=== PATIENT | male | born 1980 | race African-American/Black ===

== ENCOUNTER 2017-10-13 20:03 | Observation (INO) | payer MEDICARE, MEDICAID ==
[~2017-10-13] VITALS: Ht 185.4 cm; Wt 67.5 kg
[~2017-10-13 20:03] MED LIST: BUPR150T73 PO; LEVO750T26 PO; LITH150C PO; QUET25TA5 PO; SLEEP MED
[2017-10-13 21:14] LABS: MEAN CORPUSCULAR HEMOGLOBIN 24.1 pg (27.5-34.5); MEAN CORPUSCULAR HGB CONC 32.2 g/dL (33.2-36.2); MEAN PLATELET VOLUME 9.5 fL (7.4-10.4); PLATELET COUNT 272 x10^3/uL (130-400); RED BLOOD COUNT 5.61 x10^6/uL (4.38-5.82); RED CELL DISTRIBUTION WIDTH 17.7 % (9.4-14.8)
[2017-10-13 21:21] LABS: ALBUMIN 4.3 g/dL (3.4-5.0); ANION GAP 9 mmol/L (5-15); CALCIUM 9.2 mg/dL (8.5-10.1); CHLORIDE 109 mmol/L (98-107)
[2017-10-13 21:25] LABS: ALANINE AMINOTRANSFERASE 18 U/L (12-78); ALKALINE PHOSPHATASE 61 U/L (45-117); BILIRUBIN,TOTAL 0.7 mg/dL (0.2-1.0); CREATININE 0.88 mg/dL (0.7-1.3); SALICYLATE LEVEL 4.5 mg/dL (2.8-20.0); TOTAL PROTEIN 8.3 g/dL (6.4-8.2)
[2017-10-13 21:26] LABS: ACETAMINOPHEN < 2 mcg/mL (10-30)
[2017-10-13 21:33] LABS: AMPHETAMINE SCREEN, URINE Negative (Negative); BARBITURATE SCREEN, URINE Negative (Negative); BENZODIAZEPINE SCREEN, URINE Negative (Negative); CANNABINOID SCREEN, URINE Negative (Negative); COCAINE SCREEN, URINE Negative (Negative); METHADONE SCREEN, URINE Negative (Negative); OPIATE SCREEN, URINE Negative (Negative)
[2017-10-13 21:45] LABS: MD YES
[2017-10-13 21:49] LABS: EOS#(MANUAL) 0.48 x10^3/uL (0.0-0.4); EOS% (MANUAL) 12 % (1-7); LYMPH#(MANUAL) 1.92 x10^3/uL (1-3.4); LYMPHS% (MANUAL) 48 % (22-44); MONOS#(MANUAL) 0.24 x10^3/uL (0.3-2.7); MONOS% (MANUAL) 6 % (2-9); SEG#(MANUAL) 1.36 x10^3/uL (1.8-6.8); SEGS% (MANUAL) 34 % (42-75)
[2017-10-13 21:50] LABS: ANISOCYTOSIS 1+
[2017-10-13 21:51] LABS: <PLATELET ESTIMATE> ADEQUATE; <PLT MORPHOLOGY> NORMAL PLT MORPH
[2017-10-14] MEDS ORDERED: OLANZAPINE 10 MG TABLET PO SCH (03:00)
[2017-10-14] MEDS ORDERED: OLANZAPINE 10 MG TABLET ONE (03:27)
[2017-10-14] MEDS ORDERED: ACETAMINOPHEN 325 MG TABLET PO PRN (04:30)
[2017-10-14] MEDS ORDERED: OLANZAPINE 10 MG INJ IM PRN (05:30)
[2017-10-14] MEDS ORDERED: OLANZAPINE 10 MG TABLET PO PRN (05:30)
[2017-10-14 07:30] VITALS: BP 113/73
[2017-10-14 20:27] VITALS: BP 100/65
[2017-10-14] MEDS: OLANZAPINE 10 MG TABLET PO SCH ×2 (21:34→21:36)
[2017-10-15 08:00] VITALS: BP 123/83
[2017-10-15] MEDS ORDERED: OLAN10TA9 PO (14:17)
== END 2017-10-15 14:40 | disposition home or self-care (01) ==
LOC: ED 21:42 → SUATTDRO 10-14 04:22 → EDIP 10-14 04:40 → 3E 10-14 05:36
PROVIDERS: ADMIT Hospitalist; ATTEND Hospitalist
DX: F20.9 Schizophrenia, unspecified (principal); F23 Brief psychotic disorder; D50.9 Iron deficiency anemia, unspecified; D63.8 Anemia in other chronic diseases classified elsewhere; I10 Essential (primary) hypertension
CPT/HCPCS: 36415; 80053; 80307; 80329; 82728; 83540; 83550; 85025; 99285; G0378; G0480

== ENCOUNTER 2017-10-20 21:50 | Observation (INO) | payer MEDICARE, MEDICAID ==
[~2017-10-20] VITALS: Ht 182.9 cm; Wt 70.2 kg
[~2017-10-20 21:50] MED LIST changes: +OLAN10TA9 PO
[2017-10-20] MEDS ORDERED: LORazepam 1MG TABLET PO ONE (23:00)
[2017-10-20 23:35] LABS: MEAN CORPUSCULAR HEMOGLOBIN 24.1 pg (27.5-34.5); MEAN CORPUSCULAR HGB CONC 32.2 g/dL (33.2-36.2); MEAN CORPUSCULAR VOLUME 74.7 fL (81-97); MEAN PLATELET VOLUME 9.1 fL (7.4-10.4); PLATELET COUNT 250 x10^3/uL (130-400); RED BLOOD COUNT 5.09 x10^6/uL (4.38-5.82); RED CELL DISTRIBUTION WIDTH 17.6 % (9.4-14.8)
[2017-10-20 23:46] LABS: ALBUMIN 3.8 g/dL (3.4-5.0); ANION GAP 6 mmol/L (5-15); CALCIUM 8.9 mg/dL (8.5-10.1); CHLORIDE 106 mmol/L (98-107); CREATININE 0.85 mg/dL (0.7-1.3); SALICYLATE LEVEL 2.9 mg/dL (2.8-20.0)
[2017-10-20 23:49] LABS: ACETAMINOPHEN < 2 mcg/mL (10-30)
[2017-10-21 00:11] LABS: BASOPHILS # (AUTO) 0.04 x10^3/uL (0-0.1); BASOPHILS % (AUTO) 1 % (0-1); EOSINOPHILS % (AUTO) 7 % (1-7); LYMPHOCYTES # (AUTO) 1.78 x10^3/uL (1-3.4); LYMPHOCYTES % (AUTO) 41 % (22-44); MD SCAN; MONOCYTES # (AUTO) 0.47 x10^3/uL (0.2-0.8); MONOCYTES % (AUTO) 11 % (2-9); NEUTROPHILS # (AUTO) 1.77 x10^3/uL (1.8-6.8); NEUTROPHILS % (AUTO) 41 % (42-75)
[2017-10-21 00:59] LABS: AMPHETAMINE SCREEN, URINE Negative (Negative); BARBITURATE SCREEN, URINE Negative (Negative); BENZODIAZEPINE SCREEN, URINE Negative (Negative); CANNABINOID SCREEN, URINE Negative (Negative); COCAINE SCREEN, URINE Negative (Negative); METHADONE SCREEN, URINE Negative (Negative); OPIATE SCREEN, URINE Negative (Negative)
[2017-10-21] MEDS ORDERED: LORazepam 1MG TABLET ONE (02:50)
[2017-10-21] MEDS ORDERED: DOCUSATE 100 MG CAPSULE PO PRN (06:30)
[2017-10-21] MEDS ORDERED: ONDANSETRON ODT 4 MG PO PRN (06:30)
[2017-10-21] MEDS: OLANZAPINE 10 MG TABLET PO SCH ×2 (06:30→21:51)
[2017-10-21] MEDS ORDERED: OLANZAPINE 10 MG TABLET ONE (21:39)
[2017-10-22 11:24] VITALS: BP 110/69
[2017-10-22 19:50] VITALS: BP 118/69
[2017-10-22] MEDS: OLANZAPINE 10 MG TABLET PO SCH (21:48)
[2017-10-23 08:08] VITALS: BP 123/72
== END 2017-10-23 12:45 ==
LOC: ED 23:59 → EDIP 10-21 05:59 → 3NE 10-21 17:32 → 3E 10-22 11:37
PROVIDERS: ADMIT Internal Medicine; ATTEND Internal Medicine
DX: F20.0 Paranoid schizophrenia (principal); D50.9 Iron deficiency anemia, unspecified; I10 Essential (primary) hypertension; Z91.14 Patient's other noncompliance with medication regimen
CPT/HCPCS: 36415; 80048; 80307; 80329; 82040; 85025; 99284; 99285; G0378; G0480

== ENCOUNTER 2017-10-28 18:14 | Emergency (ER) | payer MEDICARE, MEDICAID ==
[~2017-10-28] VITALS: Ht 182.9 cm; Wt 71.4 kg
[2017-10-28 18:39] VITALS: BP 137/96
[2017-10-28] MEDS ORDERED: FLUORESCEIN OPHTHALMIC 1 MG STRIP ONE (19:15)
[2017-10-28] MEDS ORDERED: PROPARACAINE OPHTH 0.5%, 15ML ONE (19:15)
[2017-10-28] MEDS ORDERED: PROPARACAINE OPHTH 0.5%, 15ML EACHEYE ONE (19:30)
[2017-10-28] MEDS ORDERED: FLUORESCEIN OPHTHALMIC 1 MG STRIP EACHEYE ONE (19:30)
== END 2017-10-28 20:00 | disposition home or self-care (01) ==
LOC: ED 19:30
DX: L01.01 Non-bullous impetigo (principal); F32.9 Major depressive disorder, single episode, unspecified; F20.9 Schizophrenia, unspecified; E87.6 Hypokalemia; I10 Essential (primary) hypertension
CPT/HCPCS: 99283

== ENCOUNTER 2017-10-31 19:03 | Emergency (ER) | payer MEDICARE, MEDICAID ==
[~2017-10-31] VITALS: Ht 182.9 cm; Wt 68.4 kg
[2017-10-31 19:08] VITALS: BP 144/100
== END 2017-10-31 20:35 | disposition left against medical advice (07) ==
LOC: ED 19:20
DX: F20.0 Paranoid schizophrenia (principal)
CPT/HCPCS: 99281

== ENCOUNTER 2017-11-01 07:51 | Inpatient (IN) | payer MEDICARE, MEDICAID ==
[~2017-11-01] VITALS: Ht 182.9 cm; Wt 57.5 kg
[2017-11-01 08:48] LABS: AMPHETAMINE SCREEN, URINE Negative (Negative); BARBITURATE SCREEN, URINE Negative (Negative); BENZODIAZEPINE SCREEN, URINE Negative (Negative); CANNABINOID SCREEN, URINE Negative (Negative); COCAINE SCREEN, URINE Negative (Negative); METHADONE SCREEN, URINE Negative (Negative); OPIATE SCREEN, URINE Negative (Negative)
[2017-11-01 08:57] LABS: ALBUMIN 4.5 g/dL (3.4-5.0); ANION GAP 8 mmol/L (5-15); CALCIUM 9.1 mg/dL (8.5-10.1); CHLORIDE 105 mmol/L (98-107); CREATININE 1.01 mg/dL (0.7-1.3); SALICYLATE LEVEL 2.5 mg/dL (2.8-20.0)
[2017-11-01 08:58] LABS: ACETAMINOPHEN < 2 mcg/mL (10-30)
[2017-11-01 09:01] LABS: MEAN CORPUSCULAR HEMOGLOBIN 24.3 pg (27.5-34.5); MEAN CORPUSCULAR HGB CONC 32.8 g/dL (33.2-36.2); MEAN CORPUSCULAR VOLUME 74.3 fL (81-97); MEAN PLATELET VOLUME 9.6 fL (7.4-10.4); PLATELET COUNT 264 x10^3/uL (130-400); RED BLOOD COUNT 5.74 x10^6/uL (4.38-5.82); RED CELL DISTRIBUTION WIDTH 17.6 % (9.4-14.8)
[2017-11-01 09:02] LABS: MD YES
[2017-11-01 09:27] LABS: ANISOCYTOSIS 1+; EOS#(MANUAL) 0.08 x10^3/uL (0.0-0.4); EOS% (MANUAL) 1 % (1-7); LYMPH#(MANUAL) 1.98 x10^3/uL (1-3.4); LYMPHS% (MANUAL) 25 % (22-44); MONOS#(MANUAL) 0.71 x10^3/uL (0.3-2.7); MONOS% (MANUAL) 9 % (2-9); SEG#(MANUAL) 5.14 x10^3/uL (1.8-6.8); SEGS% (MANUAL) 65 % (42-75)
[2017-11-01 09:28] LABS: <PLATELET ESTIMATE> ADEQUATE; <PLT MORPHOLOGY> NORMAL PLT MORPH
[2017-11-01] MEDS ORDERED: ONDANSETRON ODT 4 MG PO PRN (13:00)
[2017-11-01] MEDS ORDERED: HALOPERIDOL 1 MG TABLET PO PRN (13:00)
[2017-11-01] MEDS ORDERED: OLANZAPINE 10 MG TABLET ONE (22:20)
[2017-11-01] MEDS ORDERED: ZOLPIDEM 5MG TABLET ONE (22:20)
[2017-11-01] MEDS: ZOLPIDEM 5MG TABLET PO PRN (22:23)
[2017-11-01] MEDS: OLANZAPINE 10 MG TABLET PO SCH (22:23)
[2017-11-01 22:50] VITALS: BP 133/89
[2017-11-02 08:30] VITALS: BP 110/74
[2017-11-02 19:46] VITALS: BP 102/68
[2017-11-02] MEDS: ZOLPIDEM 5MG TABLET PO PRN (20:39)
[2017-11-02] MEDS: OLANZAPINE 10 MG TABLET PO SCH (20:39)
[2017-11-03 07:55] VITALS: BP 120/67
[2017-11-03 20:10] VITALS: BP 115/80
[2017-11-03] MEDS: ZOLPIDEM 5MG TABLET PO PRN (21:00)
[2017-11-03] MEDS: OLANZAPINE 10 MG TABLET PO SCH (21:00)
[2017-11-04] MEDS: ZOLPIDEM 5MG TABLET PO PRN (22:38)
[2017-11-04] MEDS: OLANZAPINE 10 MG TABLET PO SCH (22:38)
[2017-11-05 08:38] VITALS: BP 120/79
[2017-11-05 19:34] VITALS: BP 123/85
[2017-11-05] MEDS: ZOLPIDEM 5MG TABLET PO PRN (20:54)
[2017-11-05] MEDS: OLANZAPINE 10 MG TABLET PO SCH (20:55)
[2017-11-06 08:48] VITALS: BP 97/55
== END 2017-11-06 13:45 | disposition home or self-care (01) | DRG 885 ==
LOC: ED 08:23 → EDIP 11:55 → OBSVTOIN 12:57 → 3E 22:41
PROVIDERS: ADMIT Internal Medicine; ATTEND Internal Medicine
DX: F20.0 Paranoid schizophrenia (principal); Z91.14 Patient's other noncompliance with medication regimen; I10 Essential (primary) hypertension; Z88.8 Allergy status to other drugs, medicaments and biological substances
CPT/HCPCS: 36415; 80048; 80307; 80329; 82040; 85025; G0378; G0480

== ENCOUNTER 2017-11-08 20:40 | Emergency (ER) | payer MEDICARE, MEDICAID ==
[~2017-11-08] VITALS: Ht 185.4 cm; Wt 73.7 kg
[2017-11-08 20:45] VITALS: BP 138/100
== END 2017-11-08 23:39 | disposition home or self-care (01) ==
LOC: ED 23:33
DX: F20.0 Paranoid schizophrenia (principal); I10 Essential (primary) hypertension; F32.9 Major depressive disorder, single episode, unspecified; Z87.891 Personal history of nicotine dependence
CPT/HCPCS: 99284

== ENCOUNTER 2017-11-12 20:33 | Emergency (ER) | payer SELFPAY | END 2017-11-12 21:02 | disposition left against medical advice (07) | LOC: MERGE 20:33 → ED 20:56 | DX: Z53.21 Procedure and treatment not carried out due to patient leaving prior to being seen by health care provider (principal) ==

== ENCOUNTER 2017-11-12 20:38 | Emergency (ER) | payer MEDICARE, MEDICAID ==
[~2017-11-12] VITALS: Ht 180.3 cm; Wt 69.4 kg
[2017-11-12 21:23] LABS: AMPHETAMINE SCREEN, URINE Negative (Negative); BARBITURATE SCREEN, URINE Negative (Negative); BENZODIAZEPINE SCREEN, URINE Negative (Negative); CANNABINOID SCREEN, URINE Negative (Negative); COCAINE SCREEN, URINE Negative (Negative); METHADONE SCREEN, URINE Negative (Negative); OPIATE SCREEN, URINE Negative (Negative)
[2017-11-12 22:06] VITALS: BP 128/65
== END 2017-11-12 22:09 | disposition home or self-care (01) ==
LOC: ED 21:53
DX: F20.0 Paranoid schizophrenia (principal); I10 Essential (primary) hypertension; Z91.19 Patient's noncompliance with other medical treatment and regimen
CPT/HCPCS: 80307; 99284

== ENCOUNTER 2017-11-15 21:42 | Emergency (ER) | payer MEDICARE, MEDICAID ==
[~2017-11-15] VITALS: Ht 182.9 cm; Wt 74.9 kg
[2017-11-15 21:44] VITALS: BP 146/94
== END 2017-11-15 21:56 | disposition left against medical advice (07) ==
LOC: ED 21:50
DX: R45.1 Restlessness and agitation (principal); Z53.21 Procedure and treatment not carried out due to patient leaving prior to being seen by health care provider

== ENCOUNTER 2017-11-17 23:56 | Emergency (ER) | payer MEDICARE, MEDICAID ==
[2017-11-18] VITALS: BP 129/84
== END 2017-11-18 00:24 | disposition left against medical advice (07) ==
LOC: ED 23:59
DX: Z53.21 Procedure and treatment not carried out due to patient leaving prior to being seen by health care provider (principal)

== ENCOUNTER 2017-12-12 00:25 | Emergency (ER) | payer MEDICARE, MEDICAID ==
[2017-12-12 00:27] VITALS: BP 133/89
== END 2017-12-12 01:42 | disposition home or self-care (01) ==
LOC: ED 01:33
DX: F20.9 Schizophrenia, unspecified (principal); Z76.0 Encounter for issue of repeat prescription; Z72.9 Problem related to lifestyle, unspecified
CPT/HCPCS: 99283

== ENCOUNTER 2017-12-15 23:00 | Emergency (ER) | payer MEDICARE, MEDICAID ==
[2017-12-15 23:01] VITALS: BP 151/114
== END 2017-12-16 00:23 | disposition home or self-care (01) ==
LOC: ED 23:27
DX: F20.0 Paranoid schizophrenia (principal); I10 Essential (primary) hypertension; Z72.9 Problem related to lifestyle, unspecified
CPT/HCPCS: 99284

== ENCOUNTER 2017-12-16 04:25 | Emergency (ER) | payer MEDICARE, MEDICAID ==
[~2017-12-16] VITALS: Ht 182.9 cm; Wt 70.7 kg
[2017-12-16 04:26] VITALS: BP 145/90
[2017-12-16] MEDS ORDERED: QUETIAPINE 100MG TABLET ONE (05:09)
[2017-12-16] MEDS ORDERED: QUETIAPINE 200 MG TABLET PO ONE (05:30)
== END 2017-12-16 05:23 | disposition home or self-care (01) ==
LOC: ED 05:18
DX: F20.0 Paranoid schizophrenia (principal); Z72.9 Problem related to lifestyle, unspecified; I10 Essential (primary) hypertension; F32.9 Major depressive disorder, single episode, unspecified; F17.200 Nicotine dependence, unspecified, uncomplicated
CPT/HCPCS: 99284

== ENCOUNTER 2018-01-10 17:26 | Emergency (ER) | payer MEDICARE, MEDICAID ==
[~2018-01-10] VITALS: Ht 182.9 cm; Wt 70.9 kg
[2018-01-10] MEDS ORDERED: LORazepam 1MG TABLET ONE (18:30)
[2018-01-10] MEDS ORDERED: LORazepam 1MG TABLET PO ONE (18:30)
[2018-01-10 18:57] LABS: AMPHETAMINE SCREEN, URINE Positive (Negative); BARBITURATE SCREEN, URINE Negative (Negative); BENZODIAZEPINE SCREEN, URINE Negative (Negative); CANNABINOID SCREEN, URINE Negative (Negative); COCAINE SCREEN, URINE Negative (Negative); METHADONE SCREEN, URINE Negative (Negative); OPIATE SCREEN, URINE Negative (Negative)
[2018-01-10 19:03] LABS: ALBUMIN 4.4 g/dL (3.4-5.0); ANION GAP 11 mmol/L (5-15); CALCIUM 9.6 mg/dL (8.5-10.1); CHLORIDE 104 mmol/L (98-107); CREATININE 0.94 mg/dL (0.7-1.3); SALICYLATE LEVEL 1.9 mg/dL (2.8-20.0)
[2018-01-10 19:17] LABS: ACETAMINOPHEN < 2 mcg/mL (10-30)
[2018-01-10 19:20] LABS: MEAN CORPUSCULAR HGB CONC 32.7 g/dL (33.2-36.2); MEAN CORPUSCULAR VOLUME 76.4 fL (81-97); MEAN PLATELET VOLUME 9.4 fL (7.4-10.4); PLATELET COUNT 286 x10^3/uL (130-400); RED BLOOD COUNT 5.44 x10^6/uL (4.38-5.82); RED CELL DISTRIBUTION WIDTH 16.2 % (9.4-14.8)
[2018-01-10 19:49] LABS: MD YES
[2018-01-10 19:53] LABS: ANISOCYTOSIS 1+; EOS% (MANUAL) 1 % (1-7); LYMPH#(MANUAL) 1.58 x10^3/uL (1-3.4); LYMPHS% (MANUAL) 16 % (22-44); MONOS#(MANUAL) 0.99 x10^3/uL (0.3-2.7); MONOS% (MANUAL) 10 % (2-9); SEG#(MANUAL) 7.23 x10^3/uL (1.8-6.8); SEGS% (MANUAL) 73 % (42-75)
[2018-01-10 19:54] LABS: <PLATELET ESTIMATE> ADEQUATE; <PLT MORPHOLOGY> NORMAL PLT MORPH
[2018-01-10 22:57] VITALS: BP 138/82
== END 2018-01-10 22:59 | disposition home or self-care (01) ==
LOC: ED 18:53
DX: Z76.5 Malingerer [conscious simulation] (principal); I10 Essential (primary) hypertension; F20.9 Schizophrenia, unspecified; F32.9 Major depressive disorder, single episode, unspecified; F41.1 Generalized anxiety disorder
CPT/HCPCS: 36415; 80048; 80307; 80329; 82040; 85025; 99284; G0480

== ENCOUNTER 2018-01-11 19:48 | Emergency (ER) | payer MEDICARE, MEDICAID ==
[~2018-01-11] VITALS: Ht 182.9 cm; Wt 70.0 kg
[2018-01-11 19:55] VITALS: BP 140/108
== END 2018-01-11 20:23 | disposition left against medical advice (07) ==
LOC: ED 20:17
DX: Z53.21 Procedure and treatment not carried out due to patient leaving prior to being seen by health care provider (principal)

== ENCOUNTER 2018-03-28 00:30 | Emergency (ER) | payer MEDICAID, MEDICARE ==
[~2018-03-28] VITALS: Ht 182.9 cm; Wt 72.6 kg
[2018-03-28 00:32] VITALS: BP 145/91
== END 2018-03-28 04:09 | disposition home or self-care (01) ==
LOC: ED 04:04
DX: F22 Delusional disorders (principal); I10 Essential (primary) hypertension; F17.200 Nicotine dependence, unspecified, uncomplicated
CPT/HCPCS: 99284

== ENCOUNTER 2018-05-18 22:39 | Emergency (ER) | payer MEDICARE, MEDICAID ==
[~2018-05-18] VITALS: Ht 182.9 cm; Wt 72.5 kg
[2018-05-18 22:40] VITALS: BP 134/87
== END 2018-05-18 23:43 | disposition home or self-care (01) ==
LOC: ED 23:18
DX: F20.0 Paranoid schizophrenia (principal); Z76.0 Encounter for issue of repeat prescription; I10 Essential (primary) hypertension; F41.1 Generalized anxiety disorder; F32.9 Major depressive disorder, single episode, unspecified
CPT/HCPCS: 99283

== ENCOUNTER 2018-05-22 12:39 | Emergency (ER) | payer MEDICARE, MEDICAID ==
[~2018-05-22] VITALS: Ht 182.9 cm; Wt 71.2 kg
[2018-05-22 13:31] LABS: ALBUMIN 3.8 g/dL (3.4-5.0); ANION GAP 6 mmol/L (5-15); CALCIUM 8.9 mg/dL (8.5-10.1); CHLORIDE 105 mmol/L (98-107)
[2018-05-22 13:37] LABS: ALANINE AMINOTRANSFERASE 27 U/L (12-78); ALKALINE PHOSPHATASE 65 U/L (45-117); BILIRUBIN,TOTAL 0.4 mg/dL (0.2-1.0); CREATININE 0.77 mg/dL (0.7-1.3); TOTAL PROTEIN 7.8 g/dL (6.4-8.2)
[2018-05-22 13:38] LABS: SALICYLATE LEVEL < 1.7 mg/dL (2.8-20.0)
[2018-05-22 13:39] LABS: ACETAMINOPHEN < 2 mcg/mL (10-30)
[2018-05-22 13:44] LABS: MEAN CORPUSCULAR HGB CONC 32.3 g/dL (33.2-36.2); MEAN CORPUSCULAR VOLUME 77.4 fL (81-97); MEAN PLATELET VOLUME 9.5 fL (7.4-10.4); PLATELET COUNT 378 x10^3/uL (130-400); RED BLOOD COUNT 5.09 x10^6/uL (4.38-5.82); RED CELL DISTRIBUTION WIDTH 17.5 % (9.4-14.8)
[2018-05-22 13:48] LABS: AMPHETAMINE SCREEN, URINE Negative (Negative); BARBITURATE SCREEN, URINE Negative (Negative); BENZODIAZEPINE SCREEN, URINE Negative (Negative); CANNABINOID SCREEN, URINE Negative (Negative); COCAINE SCREEN, URINE Negative (Negative); METHADONE SCREEN, URINE Negative (Negative); OPIATE SCREEN, URINE Negative (Negative)
[2018-05-22 14:13] LABS: MD YES
[2018-05-22 14:19] LABS: ANISOCYTOSIS 1+; BASOS#(MANUAL) 0.04 x10^3/uL (0-0.1); BASOS% (MANUAL) 1 % (0-1); EOS#(MANUAL) 0.11 x10^3/uL (0.0-0.4); EOS% (MANUAL) 3 % (1-7); LYMPHS% (MANUAL) 42 % (22-44); MONOS#(MANUAL) 0.34 x10^3/uL (0.3-2.7); MONOS% (MANUAL) 9 % (2-9); SEG#(MANUAL) 1.71 x10^3/uL (1.8-6.8); SEGS% (MANUAL) 45 % (42-75)
[2018-05-22 14:21] LABS: <PLATELET ESTIMATE> ADEQUATE; <PLT MORPHOLOGY> NORMAL PLT MORPH; HYPOCHROMIA 1+; MICROCYTOSIS 1+
[2018-05-22 15:29] VITALS: BP 118/69
== END 2018-05-22 17:23 | disposition home or self-care (01) ==
LOC: ED 13:17
DX: F20.0 Paranoid schizophrenia (principal); I10 Essential (primary) hypertension; F17.200 Nicotine dependence, unspecified, uncomplicated
CPT/HCPCS: 36415; 80053; 80307; 80329; 85025; 99284; G0480

== ENCOUNTER 2018-05-23 03:40 | Emergency (ER) | payer MEDICARE, MEDICAID ==
[~2018-05-23] VITALS: Ht 182.9 cm; Wt 70.2 kg
[2018-05-23 03:44] VITALS: BP 135/77
== END 2018-05-23 07:15 | disposition home or self-care (01) ==
LOC: ED 05:45
DX: F20.0 Paranoid schizophrenia (principal); F41.1 Generalized anxiety disorder
CPT/HCPCS: 99284

== ENCOUNTER 2018-06-05 23:01 | Emergency (ER) | payer MEDICARE, MEDICAID ==
[~2018-06-05] VITALS: Ht 182.9 cm; Wt 71.6 kg
[2018-06-05 23:05] VITALS: BP 149/85
== END 2018-06-06 00:42 | disposition home or self-care (01) ==
LOC: ED 23:49
DX: F20.0 Paranoid schizophrenia (principal); Z72.9 Problem related to lifestyle, unspecified; F41.1 Generalized anxiety disorder; F32.9 Major depressive disorder, single episode, unspecified; I10 Essential (primary) hypertension; Z88.8 Allergy status to other drugs, medicaments and biological substances
CPT/HCPCS: 99284

== ENCOUNTER 2018-06-15 20:15 | Emergency (ER) | payer MEDICARE, MEDICAID ==
[~2018-06-15] VITALS: Ht 185.4 cm; Wt 80.0 kg
[2018-06-15 20:17] VITALS: BP 156/104
--- NOTE | 2018-06-15 20:37 | NUR ---
PT STATING HE WOULD LIKE TO BE IN A MENTAL INSTITUTION BECAUSE "I HAVE BEEN HAVING SCHIZOPHRENIA THOUGHTS" PT DENIES SI/HI AND "WOULD LIKE TO BE SEEN AND TAKEN CARE OF DAMN IT". MD AT BEDSIDE FOR ASSESSMENT. NO OTHER MEDICAL COMPLAINTS FROM PT AT THIS TIME. REFUSING TO PROVIDE UA. STATES "YOU DONT NEED MY PISS, JUST DO I ASK." REFUSING TO WEAR VITALS EQUIPMENT.
--- NOTE | 2018-06-15 20:46 | NUR ---
PT TBDC PER MD ORDER.
[2018-06-15 21:11] LABS: ALBUMIN 4.3 g/dL (3.4-5.0); ANION GAP 9 mmol/L (5-15); CALCIUM 9.3 mg/dL (8.5-10.1); CHLORIDE 106 mmol/L (98-107); CREATININE 0.89 mg/dL (0.7-1.3); SALICYLATE LEVEL 3.1 mg/dL (2.8-20.0)
[2018-06-15 21:20] LABS: MD YES; MEAN CORPUSCULAR HEMOGLOBIN 25.1 pg (27.5-34.5); MEAN CORPUSCULAR HGB CONC 32.5 g/dL (33.2-36.2); MEAN CORPUSCULAR VOLUME 77.3 fL (81-97); MEAN PLATELET VOLUME 9.7 fL (7.4-10.4); PLATELET COUNT 232 x10^3/uL (130-400); RED BLOOD COUNT 5.76 x10^6/uL (4.38-5.82); RED CELL DISTRIBUTION WIDTH 17.1 % (9.4-14.8)
[2018-06-15 21:21] LABS: ACETAMINOPHEN < 2 mcg/mL (10-30)
[2018-06-15 21:22] LABS: LYMPH#(MANUAL) 2.13 x10^3/uL (1-3.4); LYMPHS% (MANUAL) 38 % (22-44); MONOS#(MANUAL) 0.67 x10^3/uL (0.3-2.7); MONOS% (MANUAL) 12 % (2-9); SEGS% (MANUAL) 50 % (42-75)
[2018-06-15 21:23] LABS: <PLATELET ESTIMATE> ADEQUATE; <PLT MORPHOLOGY> NORMAL PLT MORPH; ANISOCYTOSIS 1+
== END 2018-06-15 21:09 | disposition home or self-care (01) ==
LOC: ED 21:00
DX: F20.0 Paranoid schizophrenia (principal); I10 Essential (primary) hypertension; F41.1 Generalized anxiety disorder; F32.9 Major depressive disorder, single episode, unspecified
CPT/HCPCS: 36415; 80048; 80307; 80329; 82040; 85025; 99284; G0480

== ENCOUNTER 2018-08-21 21:47 | Emergency (ER) | payer MEDICAID, MEDICARE ==
[~2018-08-21] VITALS: Ht 182.9 cm; Wt 68.4 kg
[2018-08-21 23:28] VITALS: BP 127/87
--- NOTE | 2018-08-22 00:10 | NUR ---
NO ANSWER WHEN CALLED FOR ROOM.
--- NOTE | 2018-08-22 00:45 | NUR ---
AMBULATE TO ROOM WITH STEADY GAIT, HAS HEADPHONES IN.
--- NOTE | 2018-08-22 00:53 | NUR ---
PT SITTING UP IN [facility] NOTED. ERP AT BEDSIDE FOR INITIAL ASSESSMENT
--- NOTE | 2018-08-22 01:02 | NUR ---
PT CONTINUES TO DENY SI/HI AND STATES THAT HE WOULD LIKE TO GET BACK TO THE [facility] HAS A BED THERE UNTIL 0200 AM. CAB VOUCHER PROVIDED, PT IS MOST PLEASANT AND COOPERATIVE THIS EVEING
== END 2018-08-22 01:06 | disposition home or self-care (01) ==
LOC: ED 08-22 00:55
DX: F28 Other psychotic disorder not due to a substance or known physiological condition (principal); F17.210 Nicotine dependence, cigarettes, uncomplicated; I10 Essential (primary) hypertension; F20.9 Schizophrenia, unspecified
CPT/HCPCS: 99284

== ENCOUNTER 2019-05-23 10:26 | Emergency (ER) | payer MEDICARE, MEDICAID ==
[~2019-05-23] VITALS: Ht 180.3 cm; Wt 69.7 kg
[2019-05-23 10:31] VITALS: BP 125/72
== END 2019-05-23 12:25 | disposition home or self-care (01) ==
LOC: ED 11:55
DX: M79.644 Pain in right finger(s) (principal)
CPT/HCPCS: 29130; 99283

== ENCOUNTER 2020-03-28 10:50 | Emergency (ER) | payer MEDICARE, MEDICAID ==
[~2020-03-28] VITALS: Ht 182.9 cm; Wt 70.0 kg
--- NOTE | 2020-03-28 11:05 | NUR ---
PT BIB EMS FOR "HEARING VOICES". PT WAS AT THE BUS STOP AND HE CALLED 911 BECAUSE HE "THINKS SOMEONE IS AFTER HIM. SOMEONE IS ALWAYS AFTER ME. THATS WHY I TAKE SEROQUL...SO I CAN BE SEDATED". PT TRIED TO CHECK INTO A MENTAL HEALTH FACILITY AND WAS TOLD TO COME TO ER. PT HAS DENIED SI/HI AT THIS TIME. PT IS RESTING IN [facility]. PT IS NOT ON A LEGAL HOLD AT THIS TIME
[2020-03-28 12:03] LABS: CHLORIDE 109 mmol/L (98-107)
[2020-03-28 12:06] LABS: ALBUMIN 4.2 g/dL (3.4-5.0); ANION GAP 5 mmol/L (5-15); CREATININE 0.92 mg/dL (0.7-1.3); SALICYLATE LEVEL 2.3 mg/dL (2.8-20.0)
[2020-03-28 12:09] LABS: RED CELL DISTRIBUTION WIDTH 15.7 % (9.4-14.8)
--- NOTE | 2020-03-28 12:16 | NUR ---
FIRST CONTACT WITH PT, PSYCH HERE INTERVIEWING PLACED PT ON LEGAL HOLD. CN NOTIFIED. URINE WALKED TO LAB BY THIS GEOLOGICAL SAMPLE TESTER.
[2020-03-28 12:20] LABS: BASOPHILS % (AUTO) 1 % (0-1); EOSINOPHILS % (AUTO) 1 % (1-7); LYMPHOCYTES % (AUTO) 32 % (22-44); MEAN PLATELET VOLUME 8.8 fL (7.4-10.4); MONOCYTES % (AUTO) 13 % (2-9); NEUTROPHILS % (AUTO) 54 % (42-75); PLATELET COUNT 254 x10^3/uL (130-400); RED BLOOD COUNT 6.36 x10^6/uL (4.38-5.82)
[2020-03-28 12:21] LABS: MD NO
--- NOTE | 2020-03-28 12:21 | NUR ---
CN NOTIFIED OF HOLD STATUS, ROOM SECURED, BELONGINGS REMOVED PLACED IN STORAGE LOCKER. PT IS CALM, COOPERATIVE AT THIS TIME. WILL CONTINUE TO MONITOR.
[2020-03-28 13:21] VITALS: BP 145/88
--- NOTE | 2020-03-28 13:21 | NUR ---
REPORT TO JOSH IN [facility]. PT TO BE TX WITH ALL BELONGINS ACCOMPANY BY TECH.
[2020-03-28 13:35] LABS: AMPHETAMINE SCREEN, URINE Negative (Negative); BARBITURATE SCREEN, URINE Negative (Negative); BENZODIAZEPINE SCREEN, URINE Negative (Negative); CANNABINOID SCREEN, URINE Negative (Negative); COCAINE SCREEN, URINE Negative (Negative); OPIATE SCREEN, URINE Negative (Negative)
[2020-03-28 13:41] LABS: METHADONE SCREEN, URINE Negative (Negative)
== END 2020-03-28 14:29 | disposition other institution (70) ==
LOC: ED 13:28
DX: R44.1 Visual hallucinations (principal); F20.9 Schizophrenia, unspecified; I10 Essential (primary) hypertension; F32.9 Major depressive disorder, single episode, unspecified
CPT/HCPCS: 36415; 80048; 80307; 82040; 85025; 99283

== ENCOUNTER 2020-04-10 01:33 | Emergency (ER) | payer MEDICARE, MEDICAID ==
[~2020-04-10] VITALS: Ht 182.9 cm; Wt 65.8 kg
[~2020-04-10 01:33] MED LIST changes: +NICO-485 TD; +QUET100T PO
--- NOTE | 2020-04-10 01:53 | NUR ---
PT STATES HIS LANDLORD IS TRYING TO HARM HIM, DENIES SI/HI. WHEN ASKING PT QUESTIONS ABOUT SMOKING, DRINKING HISTORY PT GETS FLUSTED AND STATES "I DONT KNOW, I CANNOT DIAGNOSE MYSELF, AND YOU GUYS CANNOT DIAGNOSE ME EITHER". PT RESTLESS IN BED, PLACED ON CONTINUOUS PULSE OX.
--- NOTE | 2020-04-10 02:03 | NUR ---
ERP AT BEDSIDE FOR EVAL
[2020-04-10] MEDS ORDERED: QUETIAPINE 100MG TABLET ONE (02:19)
--- NOTE | 2020-04-10 02:24 | NUR ---
PT MEDICATED PER EMAR, AND GIVEN SOME CEREAL, OK PER MD
[2020-04-10] MEDS ORDERED: QUETIAPINE 200 MG TABLET PO ONE (02:30)
--- NOTE | 2020-04-10 02:58 | NUR ---
PT STATES FEELING BETTER AFTER SEROQUIL ADMIN, PT DROWSY AND DOZING INTERMITTENTLY AT THIS TIME
--- NOTE | 2020-04-10 03:53 | NUR ---
PT SLEEPING IN BED, SLURRING SPEECH SLIGHTLY FROM MEDICATION AND DOZING OFF AND ON WHILE THIS NURSE IS TALKING WITH PT. SPOKE WITH ERP, PT WAS EXPRESSING PARANOIA/FEAR TOWARDS GOING HOME TO [facility] AND WAS OFF MEDS FOR "AWHILE"- PER PT. PT MEDICATED PER EMAR, AND ERP STATES TO HAVE PT MTF.
[2020-04-10 04:29] VITALS: BP 112/66
--- NOTE | 2020-04-10 04:39 | NUR ---
ERP GAVE THIS RN D/C PAPERS, BUT STATED TO WAIT UNTIL 529 BECAUSE PT'S LANDLORD LEAVES FOR WORK AT THAT TIME AND PT IS SCARED OF GETTING HURT IF HE GOES HOME EARLIER. PT RESTING IN BED, RESP EVEN, AND ON PULSE CONTINUOUS OX.
== END 2020-04-10 06:10 | disposition home or self-care (01) ==
LOC: ED 03:40
DX: F20.0 Paranoid schizophrenia (principal); Z76.0 Encounter for issue of repeat prescription; F41.1 Generalized anxiety disorder
CPT/HCPCS: 99281; 99283

== ENCOUNTER 2020-05-05 21:00 | Emergency (ER) | payer MEDICARE, MEDICAID ==
[~2020-05-05] VITALS: Ht 182.9 cm; Wt 69.0 kg
[2020-05-05 21:19] VITALS: BP 147/87
--- NOTE | 2020-05-05 23:39 | NUR ---
MARINE UNDERWRITER: PT FROM LOBBY TO ROOM AT THIS TIME. STEADY UPON AMBULATION.
--- NOTE | 2020-05-05 23:43 | NUR ---
pt reports that he feels like his roommates and landlords "want to put him to rest". felt like this for about a year. no SI/HI. pt states he has been on medications before in the past, but states it just puts him to sleep. hx of schizophrenia. worsening symptoms now. usually doesn't have these thoughts. also reports shakiness. needs medications to help with paranoia.
[2020-05-06] MEDS ORDERED: QUETIAPINE 200 MG TABLET PO ONE (00:30)
[2020-05-06 00:49] LABS: BASOPHILS % (AUTO) 1 % (0-1); EOSINOPHILS % (AUTO) 2 % (1-7); LYMPHOCYTES % (AUTO) 36 % (22-44); MEAN CORPUSCULAR HEMOGLOBIN 24.9 pg (27.5-34.5); MEAN CORPUSCULAR HGB CONC 32.7 g/dL (33.2-36.2); MEAN PLATELET VOLUME 8.6 fL (7.4-10.4); MONOCYTES % (AUTO) 8 % (2-9); NEUTROPHILS % (AUTO) 53 % (42-75); PLATELET COUNT 238 x10^3/uL (130-400); RED CELL DISTRIBUTION WIDTH 16.5 % (9.4-14.8)
[2020-05-06 00:51] LABS: ALANINE AMINOTRANSFERASE 32 U/L (12-78); ALBUMIN 4.2 g/dL (3.4-5.0); ANION GAP 0 mmol/L (5-15); CALCIUM 9.7 mg/dL (8.5-10.1); CHLORIDE 107 mmol/L (98-107); SALICYLATE LEVEL 2.1 mg/dL (2.8-20.0)
[2020-05-06 00:52] LABS: MD NO
[2020-05-06 00:53] LABS: ALKALINE PHOSPHATASE 55 U/L (45-117); BILIRUBIN,TOTAL 0.6 mg/dL (0.2-1.0); CREATININE 0.91 mg/dL (0.7-1.3); TOTAL PROTEIN 8.4 g/dL (6.4-8.2)
[2020-05-06] MEDS ORDERED: QUETIAPINE 100MG TABLET ONE (01:05)
[2020-05-06 01:18] LABS: MICROSCOPIC NOT IND
[2020-05-06 01:24] LABS: AMPHETAMINE SCREEN, URINE Negative (Negative); BARBITURATE SCREEN, URINE Negative (Negative); BENZODIAZEPINE SCREEN, URINE Negative (Negative); CANNABINOID SCREEN, URINE Negative (Negative); COCAINE SCREEN, URINE Negative (Negative); METHADONE SCREEN, URINE Negative (Negative); OPIATE SCREEN, URINE Negative (Negative)
--- NOTE | 2020-05-06 02:37 | NUR ---
[facility] accepts via [employer].
--- NOTE | 2020-05-06 02:46 | NUR ---
COVID SWAB COLLECTED. RN TOLD PT HE WILL BE ADMITTED. PT IS VOLUNTARY. RN GETTING FOOD FOR PT.
--- NOTE | 2020-05-06 03:41 | NUR ---
REPORT GIVEN TO MARISELA BLUE.
== END 2020-05-06 04:45 ==
LOC: ED 05-06 00:28
DX: F20.0 Paranoid schizophrenia (principal); F41.1 Generalized anxiety disorder; Z72.9 Problem related to lifestyle, unspecified; Z91.14 Patient's other noncompliance with medication regimen; Z20.828 Contact with and (suspected) exposure to other viral communicable diseases; F20.9 Schizophrenia, unspecified; F17.290 Nicotine dependence, other tobacco product, uncomplicated
CPT/HCPCS: 36415; 80053; 80307; 81003; 85025; 87635; 99285

== ENCOUNTER 2020-05-06 03:01 | Inpatient (IN) | payer MEDICARE, MEDICAID ==
[~2020-05-06] VITALS: Ht 182.9 cm; Wt 69.0 kg
[2020-05-06] MEDS ORDERED: BISACODYL 10 MG SUPP PR PRN (03:30)
[2020-05-06] MEDS ORDERED: POLYETHYLENE GLYCOL 17 GM PACKET PO PRN (03:30)
[2020-05-06] MEDS ORDERED: ONDANSETRON ODT 4 MG PO PRN (03:30)
[2020-05-06] MEDS ORDERED: DOCUSATE 100 MG CAPSULE PO PRN (03:30)
[2020-05-06] MEDS ORDERED: ACETAMINOPHEN 325 MG TABLET PO PRN (03:30)
[2020-05-06 04:57] LABS: CHOL/HDL RATIO 2.3; FREE T4 (FREE THYROXINE) 1.1 ng/dL (0.76-1.46); LDL/HDL RATIO 1.1 (0.5-3.0)
[2020-05-06] MEDS ORDERED: PLEASE ENTER HEIGHT AND WEIGHT MC SCH (05:00)
[2020-05-06 05:51] VITALS: BP 108/72
[2020-05-06] MEDS: NICOTINE 7 MG/24 HR PATCH.TD24 TD SCH (09:00)
[2020-05-06 19:30] VITALS: BP 0/0
[2020-05-06] MEDS: QUETIAPINE 100MG TABLET PO SCH (20:39)
[2020-05-07] MEDS: NICOTINE 7 MG/24 HR PATCH.TD24 TD SCH (08:20)
[2020-05-07] MEDS: QUETIAPINE 100MG TABLET PO SCH (21:00)
[2020-05-08] MEDS: NICOTINE 7 MG/24 HR PATCH.TD24 TD SCH (09:00)
[2020-05-08] MEDS ORDERED: QUET100T PO (13:11)
[2020-05-08] MEDS ORDERED: NICO-485 TD (13:11)
== END 2020-05-08 15:52 | disposition home or self-care (01) | DRG 885 ==
LOC: 3E 04:39
PROVIDERS: ADMIT Psychiatry & Neurology Psychosomatic Medicine; ATTEND Psychiatry & Neurology Psychosomatic Medicine
DX: F20.0 Paranoid schizophrenia (principal); F29 Unspecified psychosis not due to a substance or known physiological condition; F17.200 Nicotine dependence, unspecified, uncomplicated; I10 Essential (primary) hypertension; Z91.19 Patient's noncompliance with other medical treatment and regimen; Z88.8 Allergy status to other drugs, medicaments and biological substances
CPT/HCPCS: 36415; 80061; 84439; 84443